=== PATIENT | female | born 1995 ===

== ENCOUNTER → 2020-07-31 | Outpatient (CLI) | payer OTHER | END | disposition home or self-care (01) | LOC: PRENATAL 10:23 | PROVIDERS: ATTEND Obstetrics & Gynecology Maternal & Fetal Medicine | DX: O35.0XX1 Maternal care for (suspected) central nervous system malformation in fetus, fetus 1 (principal); O35.3XX1 Maternal care for (suspected) damage to fetus from viral disease in mother, fetus 1; O98.512 Other viral diseases complicating pregnancy, second trimester; Z36.89 Encounter for other specified antenatal screening; Z3A.21 21 weeks gestation of pregnancy ==

== ENCOUNTER 2020-08-20 12:35 | Outpatient (CLI) | payer OTHER | END 2020-08-21 09:52 | disposition home or self-care (01) | LOC: OBS/DEL 12:35 | PROVIDERS: ATTEND Obstetrics & Gynecology | DX: O26.842 Uterine size-date discrepancy, second trimester (principal); O26.852 Spotting complicating pregnancy, second trimester; Z3A.24 24 weeks gestation of pregnancy; O26.892 Other specified pregnancy related conditions, second trimester; N20.0 Calculus of kidney ==

== ENCOUNTER 2020-08-27 01:43 | Outpatient (CLI) | payer OTHER ==
[2020-08-27] MEDS ORDERED: PRENATAL TABLE1 EAC1 PO (02:06)
== END 2020-08-27 11:15 | disposition home or self-care (01) ==
LOC: OBS/DEL 01:43
PROVIDERS: ATTEND Obstetrics & Gynecology
DX: O46.8X2 Other antepartum hemorrhage, second trimester (principal); Z3A.25 25 weeks gestation of pregnancy

== ENCOUNTER 2020-12-03 06:23 | Inpatient (IN) | payer OTHER ==
[~2020-12-03] VITALS: Ht 154.9 cm; Wt 74.4 kg
[~2020-12-03 06:23] MED LIST: PRENATAL TABLE1 EAC1 PO
== END 2020-12-05 17:41 | disposition home or self-care (01) | DRG 798 ==
LOC: OB/GYN 06:23 → LDR 06:23 → OB/GYN 19:23
PROVIDERS: ADMIT Obstetrics & Gynecology; ATTEND Obstetrics & Gynecology
PROC: 10E0XZZ Delivery of Products of Conception, External Approach (ICD-10-PCS; principal; 2020-12-03)
PROC: 0HQ9XZZ Repair Perineum Skin, External Approach (ICD-10-PCS; 2020-12-03)
PROC: 4A1HXFZ Monitoring of Products of Conception, Cardiac Rhythm, External Approach (ICD-10-PCS; 2020-12-03)
PROC: 0UB70ZZ Excision of Bilateral Fallopian Tubes, Open Approach (ICD-10-PCS; 2020-12-04)
DX: O70.0 First degree perineal laceration during delivery (principal); Z37.0 Single live birth; Z3A.39 39 weeks gestation of pregnancy; Z30.2 Encounter for sterilization; Z20.822 Contact with and (suspected) exposure to COVID-19